=== PATIENT | male | born 1990 | race Caucasian/White ===

== ENCOUNTER 2016-10-08 17:53 | Emergency (ER) | payer BC ==
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
[2016-10-08 18:09] VITALS: RESP 18
[2016-10-08] MEDS ORDERED: HYDROCOD/APAP 5/325 PREPACK#6 BTL TAKEHOME ONE ×2 (20:24→20:25)
[2016-10-08 20:32] VITALS: BP 125/93; PULSE 82; TEMP 97.9; O2SAT 95
== END 2016-10-08 20:35 | disposition home or self-care (01) ==
PROC: 0HQ1XZZ Repair Face Skin, External Approach (ICD-10-PCS; principal; 2016-10-08)
DX: S02.40FA Zygomatic fracture, left side, initial encounter for closed fracture (principal); S01.81XA Laceration without foreign body of other part of head, initial encounter; V18.4XXA Pedal cycle driver injured in noncollision transport accident in traffic accident, initial encounter; Y92.410 Unspecified street and highway as the place of occurrence of the external cause; Y99.8 Other external cause status; Y93.89 Activity, other specified